=== PATIENT | male | born 1965 | race African-American/Black ===

== ENCOUNTER 2017-10-17 11:43 | Inpatient (IN) | payer OTHER ==
[2017-10-17 12:24] VITALS: BMI 24.9
--- NOTE | 2017-10-17 13:14 | HP ---
Admission ROS [facility] Chief Complaint: i need help to stop using cocaine Allergies/Adverse Reactions: Allergies Allergy/AdvReac Type Severity Reaction Status Date / Time No Known Allergies Allergy Verified 10/17/17 13:08 History of Present Illness: this 52 years old male with cocaine dependence,seeking rehab,last treatment [facility] admitted in [place] from 09/25/17 to 10/17/16 multiple medical problem,type 2 dm on insulin,neuropathy,hypercholesterolemia, gerd last treatment [facility] in 07/23 no significant period of sobriety Exam Limitations: No Limitations - Ebola screening Have you traveled outside of the country in the last 21 days: No Have you been sick,other than usual withdrawal symptoms: No - Review of Systems Constitutional: No Symptoms Reported EENT: reports: No Symptoms Reported Respiratory: reports: No Symptoms reported Cardiac: reports: No Symptoms Reported GI: reports: No Symptoms Reported : reports: No Symptoms Reported Musculoskeletal: reports: No Symptoms Reported Integumentary: reports: No Symptoms Reported Neuro: reports: No Symptoms reported Endocrine: reports: No Symptoms Reported Hematology: reports: No Symptoms Reported Psychiatric: reports: Depressed (mood disorder) Patient History - Patient Medical History Hx Anemia: No Hx Asthma: No Hx Chronic Obstructive Pulmonary Disease (COPD): No Hx Cancer: No Hx Cardiac Disorders: No Hx Congestive Heart Failure: No Hx Hypertension: No Hx Hypercholesterolemia: No Hx Pacemaker: No HX Cerebrovascular Accident: No Hx Seizures: No Hx Dementia: No Hx Diabetes: Yes (iddm) Hx Gastrointestinal Disorders: Yes (on prilosec) Hx Liver Disease: No Hx Genitourinary Disorders: No Hx Sexually Transmitted Disorders: Yes (gonorrhea at age 23) Hx Renal Disease (ESRD): No Hx Thyroid Disease: No Hx Human Immunodeficiency Virus (HIV): No (2012 last tested negative) Hx Hepatitis C: No Hx Depression: Yes (on med) Hx Suicide Attempt: Yes (overdose 04/18) Hx Bipolar Disorder: No Hx Schizophrenia: No Other Medical History: no suicidal,no homicidal - Patient Surgical History Past Surgical History: No Hx Neurologic Surgery: No Hx Cataract Extraction: No Hx Cardiac Surgery: No Hx Lung Surgery: No Hx Breast Surgery: No Hx Breast Biopsy: No Hx Abdominal Surgery: No Hx Appendectomy: No Hx Cholecystectomy: No Hx Genitourinary Surgery: No Hx Section: No Hx Orthopedic Surgery: No Anesthesia Reaction: No - PPD History Date: 05/22/14 - Smoking Cessation Smoking history: Current every day smoker Have you smoked in the past 12 months: Yes Aproximately how many cigarettes per day: 20 Cigars Per Day: 0 Hx Chewing Tobacco Use: No Initiated information on smoking cessation: Yes 'Breaking Loose' booklet given: 10/17/17 - Substance & Tx. History Hx Alcohol Use: No Hx Substance Use: Yes Substance Use Type: Cocaine Hx Substance Use Treatment: Yes ([facility] in 07/23) Family Disease History - Family Disease History Family Disease History: Diabetes: Father, Heart Disease: Mother (htn) Admission Physical Exam [facility] - Vital Signs Vital Signs: Vital Signs - 24 hr 10/17/17 12:12 Temperature 98.9 F Pulse Rate 100 H Respiratory 18 Rate Blood Pressure 120/70 - Physical General Appearance: Yes: Within Normal Limits HEENTM: Yes: Hearing grossly Normal, Normal ENT Inspection, Pharynx Normal Respiratory: Yes: Lungs Clear, Normal Breath Sounds, No Respiratory Distress Neck: Yes: Within Normal Limits, Supple, Trachea in good position Breast: Yes: Within Normal Limits Cardiology: Yes: Within Normal Limits, Regular Rhythm, Regular Rate, S1, S2 Abdominal: Yes: Within Normal Limits, Normal Bowel Sounds, Non Tender, Flat, Soft Genitourinary: Yes: Within Normal Limits Back: Yes: Within Normal Limits Musculoskeletal: Yes: Within Normal Limits Extremities: Yes: Within Normal Limits Neurological: Yes: manager process excellence II-XII NML intact, Fully Oriented, Alert, Motor Strength 5/5 Integumentary: Yes: Within Normal Limits Lymphatic: Yes: Within Normal Limits - Diagnostic (1) Cocaine dependence Current Visit: No Status: Acute (2) Depression Current Visit: No Status: Acute (3) Gastroesophageal reflux disease Current Visit: No Status: Acute (4) Nicotine dependence Current Visit: No Status: Acute (5) Weight decreased Current Visit: No Status: Acute (6) IDDM (insulin dependent diabetes mellitus) Current Visit: Yes Status: Acute Cleared for Admission [facility] - Detox or Rehab Claeared for Rehab Admission: Yes [facility] Breath Alcohol Content Breath Alcohol Content: 0 Urine Drug Screen - Results Drug Screen Negative: Yes Inpatient Rehab Admission - Initial Determination Are CD services needed?: Yes Free of communicable disease: Yes Not in need of hospitalization: Yes - Rehab Admission Criteria Previous failed treatment: Yes Poor recovery environment: Yes Comorbidities: Yes Patient is meeting Inpatient Rehab admission criteria:: Yes
[2017-10-17] MEDS ORDERED: MAGNESIUM HYDROX 2400MG/30ML ORAL SUSPENSION 30 ML CUP PO PRN (13:24)
[2017-10-17] MEDS ORDERED: hydrOXYzine PAMOATE 50 MG CAPSULE (FP) PO PRN (13:24)
[2017-10-17] MEDS ORDERED: LOPERAMIDE HCL 2 MG CAPSULE PO PRN (13:24)
[2017-10-17] MEDS ORDERED: P-EPHED 60MG/TRIPROLIDI 2.5MG TABLET PO PRN (13:24)
[2017-10-17] MEDS ORDERED: MAGNESIUM CITRATE 300 ML BOTTLE PO PRN (13:24)
[2017-10-17] MEDS ORDERED: ACETAMINOPHEN 325 MG TABLET (FP) PO PRN (13:24)
[2017-10-17] MEDS ORDERED: MAG HYDROX/AL HYDROX/SIMETH 30 ML UNIT-DOSE CUP PO PRN (13:24)
[2017-10-17] MEDS ORDERED: IBUPROFEN 400 MG TABLET (FP) PO PRN (13:24)
[2017-10-17] MEDS ORDERED: guaiFENesin/D-METHORPHAN HB 10 ML UNIT-DOSE CUPS PO PRN (13:24)
[2017-10-17] MEDS ORDERED: MENTHOL/PHENOL 1 EACH UD MM PRN (13:24)
[2017-10-17] MEDS ORDERED: TUBERCULIN PPD 5 TU/0.1ML VIAL ID ONE (15:15)
[2017-10-17] MEDS: INSULIN (NOVOLOG) ASPART 100 UNITS/ML 10ML VIAL SQ SCH ×2 (16:43→21:10)
[2017-10-17] MEDS: metFORMIN HCL 500 MG TABLET (FP) PO SCH (16:43)
[2017-10-17] MEDS ORDERED: INSULIN (NOVOLOG) ASPART 100 UNITS/ML 10ML VIAL ONE ×2 (17:08→20:58)
[2017-10-17 17:23] LABS: ALBUMIN 3.3 g/dl (3.4-5.0); ANION GAP 6 (8-16); BILIRUBIN,TOTAL 0.3 mg/dL (0.2-1.0); BLOOD UREA NITROGEN 14 mg/dL (7-18); CALCIUM 8.9 mg/dL (8.5-10.1); CHLORIDE 99 mmol/L (98-107); CO2 30 mmol/L (21-32); CREATININE 0.8 mg/dL (0.7-1.3); GLUCOSE,RANDOM 283 mg/dL (74-106); POTASSIUM 4.8 mmol/L (3.5-5.1); SGOT/AST 13 U/L (15-37); SGPT/ALT 26 U/L (12-78); SODIUM 135 mmol/L (136-145)
[2017-10-17 17:24] LABS: ALK PHOS 137 U/L (45-117)
[2017-10-17 17:28] LABS: HEMATOCRIT 39.2 % (35.4-49); HEMOGLOBIN 12.9 GM/dL (11.7-16.9); MCH 31.5 pg (25.7-33.7); MEAN CELL VOLUME 95.2 fl (80-96); MEAN PLT VOLUME 8.6 fl (7.5-11.1); PLATELET COUNT 373 K/MM3 (134-434); RBC 4.11 M/mm3 (4.00-5.60); RDW 13.9 % (11.9-15.9); WHITE BLOOD COUNT 4.6 K/mm3 (4.0-10.0)
[2017-10-17] MEDS: VITAMINS A AND D TOPICAL OINTMENT 60 GM TUBE TP SCH ×2 (17:45→23:06)
[2017-10-17] MEDS: ATORVASTATIN CA 10 MG TABLET (FP) PO SCH (21:09)
[2017-10-17] MEDS: GABAPENTIN 300 MG CAPSULE (FP) PO SCH (21:10)
[2017-10-17] MEDS: THIAMINE HCL 100 MG TABLET (FP) PO SCH (21:10)
--- NOTE | 2017-10-17 21:21 | PN ---
[facility] Progress Note Note: Psychiatry Attending's on-call note : Informed of patient's arrival to unit. Called for medications orders. Mr Arteaga is admitted from [facility]. Discharged today from [facility] (self-report). Spoke to patient via telephone.Jaya historian. Claims : seroquel 200 mg/hs remeron 30 mg/hs trazodone 250 mg/hs Patient declines to continue remeron. Will resume : seroquel 200 mg po hs trazodone 150 mg po hs Side effects/benefits of both drugs discussed. Patient made aware of risk of priapism.Normal vitals on admission. Potential for oversedation,falls,abnormal involuntary movements metabolic syndrome,orthostasis,cardiovascular adverse events. Consent (verbal) given.
[2017-10-17] MEDS: QUEtiapine FUMARATE 200 MG TABLET PO SCH (21:47)
[2017-10-17] MEDS ORDERED: traZODone HCL 50 MG TABLET (FP) PO SCH (22:00)
[2017-10-17 23:15] LABS: URINE APPEARANCE CLEAR; URINE BILIRUBIN NEGATIVE (NEGATIVE); URINE BLOOD NEGATIVE (NEGATIVE); URINE COLOR LTYELLOW; URINE GLUCOSE (UA) 3+ (NEGATIVE); URINE KETONE NEGATIVE (NEGATIVE); URINE LEUK ESTERASE NEGATIVE (NEGATIVE); URINE NITRITE NEGATIVE (NEGATIVE); URINE PROTEIN NEGATIVE (NEGATIVE); URINE UROBILINOGEN NEGATIVE mg/dL (0.2-1.0)
[2017-10-18] MEDS: metFORMIN HCL 500 MG TABLET (FP) PO SCH ×2 (06:25→16:59)
[2017-10-18] MEDS ORDERED: INSULIN (NOVOLOG) ASPART 100 UNITS/ML 10ML VIAL ONE ×3 (07:20→16:59)
[2017-10-18] MEDS: INSULIN (NOVOLOG) ASPART 100 UNITS/ML 10ML VIAL SQ SCH ×4 (07:27→21:32)
[2017-10-18] MEDS: VITAMINS A AND D TOPICAL OINTMENT 60 GM TUBE TP SCH ×3 (07:38→21:34)
[2017-10-18] MEDS: ASPIRIN 81 MG CHEWABLE TABLETS PO SCH (09:53)
[2017-10-18] MEDS: PRENATAL VITAMINS W/ FOLIC ACID TABLET (FP) PO SCH (09:53)
[2017-10-18] MEDS: GABAPENTIN 300 MG CAPSULE (FP) PO SCH ×2 (09:53→21:29)
[2017-10-18] MEDS: PANTOPRAZOLE 40 MG TABLET (FP) PO SCH (09:53)
--- NOTE | 2017-10-18 11:39 | HP ---
Psychiatrist Admission - Data Date of interview: 10/18/17 Admission source: [facility] Identifying data: This is the first 5N inpatient rehabilitation admission for this 52 year old single AA male father of 2, unemployed and supported on food stamps, domiciled. Medical History: NIDDM. Smokes cigarettes 1PPD. Psychiatric History: Patient reports was diagnosed with "depression and mood disorder", reports several psychiatric hospitalizations, with most recent last month, was admitted due to depressed mood and suicidal thoughts to [facility]. Reports first suicidal attempt when was 21 years old, following the of his twin brother, he took whole bottle of inderal. As per medical record from [facility] is currelntly on Seroquel 200 mg po hs, Remeron 30 mg po hs and Trazodone 250 mg po hs. Physical/Sexual Abuse/Trauma History: Patient denies history of sexual, physical and verbal abuse. Additional Comment: Mandy has two daughters age od 34 and 32, lives in [facility] with his friend. Vital Signs: Vital Signs - 24 hr 10/17/17 10/17/17 10/18/17 12:12 16:15 00:37 Temperature 98.9 F 98.4 F Pulse Rate 100 H 98 H Respiratory 18 16 18 Rate Blood Pressure 120/70 130/77 10/18/17 10/18/17 03:31 06:47 Temperature 98.3 F Pulse Rate 103 H Respiratory 18 18 Rate Blood Pressure 116/73 Allergies/Adverse Reactions: Allergies Allergy/AdvReac Type Severity Reaction Status Date / Time No Known Allergies Allergy Verified 10/17/17 13:08 Concur with the findings of this exam: No - Substance Abuse/Tx History Hx Alcohol Use: No Hx Substance Use: Yes ($50 daily use) Substance Use Type: Cocaine Hx Substance Use Treatment: Yes ([facility]) Mental Status Exam - Mental Status Exam Alert and Oriented to: Time, Place, Person Cognitive Function: Good Patient Appearance: Well Groomed Mood: Sad Affect: Appropriate, Mood Congruent Patient Behavior: Appropriate, Cooperative Speech Pattern: Appropriate Voice Loudness: Normal Thought Process: Intact, Goal Oriented Thought Disorder: Not Present Hallucinations: Denies Suicidal Ideation: Denies Homicidal Ideation: Denies Insight/Judgement: Fair Sleep: Difficulty falling asleep Appetite: Fair Muscle strength/Tone: Normal Gait/Station: Normal Psychiatric Findings - Problem List ([place] 1, 2,3) (1) MDD (major depressive disorder), recurrent severe, without psychosis Current Visit: Yes Status: Acute (2) Cocaine dependence Current Visit: No Status: Acute (3) DM (diabetes mellitus), type 1 Current Visit: No Status: Acute (4) Nicotine dependence Current Visit: No Status: Acute - Initial Treatment Plan Initial Treatment Plan: Will continue current medications, monitor progress as needed.
--- NOTE | 2017-10-18 11:49 | PN ---
S Progress Note (SOAP) Subjective: elevated glucose, not ordered insulain properly on admission Objective: 10/18/17 11:48 Vital Signs - 24 hr 10/17/17 10/17/17 10/18/17 12:12 16:15 00:37 Temperature 98.9 F 98.4 F Pulse Rate 100 H 98 H Respiratory 18 16 18 Rate Blood Pressure 120/70 130/77 10/18/17 10/18/17 03:31 06:47 Temperature 98.3 F Pulse Rate 103 H Respiratory 18 18 Rate Blood Pressure 116/73 Laboratory Tests 10/17/17 10/17/17 10/17/17 12:00 12:00 13:20 WBC 4.6 RBC 4.11 Hgb 12.9 Hct 39.2 MCV 95.2 MCH 31.5 MCHC 33.0 RDW 13.9 Plt Count 373 MPV 8.6 Sodium 135 L Potassium 4.8 Chloride 99 Carbon Dioxide 30 Anion Gap 6 L BUN 14 Creatinine 0.8 Creat Clearance w eGFR > 60 POC Glucometer 276 Random Glucose 283 H D Calcium 8.9 Total Bilirubin 0.3 D AST 13 L D ALT 26 Alkaline Phosphatase 137 H Total Protein 7.0 Albumin 3.3 L Urine Color Urine Appearance Urine pH Ur Specific [place] Urine Protein Urine Glucose (UA) Urine Ketones Urine Blood Urine Nitrite Urine Bilirubin Urine Urobilinogen Ur Leukocyte Esterase HIV 1&2 Antibody Screen HIV P24 Antigen 10/17/17 10/17/17 10/17/17 16:42 20:45 21:00 WBC RBC Hgb Hct MCV MCH MCHC RDW Plt Count MPV Sodium Potassium Chloride Carbon Dioxide Anion Gap BUN Creatinine Creat Clearance w eGFR POC Glucometer 277 212 Random Glucose Calcium Total Bilirubin AST ALT Alkaline Phosphatase Total Protein Albumin Urine Color Ltyellow Urine Appearance Clear Urine pH 7.0 Ur Specific [place] 1.017 Urine Protein Negative Urine Glucose (UA) 3+ H Urine Ketones Negative Urine Blood Negative Urine Nitrite Negative Urine Bilirubin Negative Urine Urobilinogen Negative Ur Leukocyte Esterase Negative HIV 1&2 Antibody Screen HIV P24 Antigen 10/18/17 10/18/17 05:45 06:24 WBC RBC Hgb Hct MCV MCH MCHC RDW Plt Count MPV Sodium Potassium Chloride Carbon Dioxide Anion Gap BUN Creatinine Creat Clearance w eGFR POC Glucometer 287 Random Glucose Calcium Total Bilirubin AST ALT Alkaline Phosphatase Total Protein Albumin Urine Color Urine Appearance Urine pH Ur Specific [place] Urine Protein Urine Glucose (UA) Urine Ketones Urine Blood Urine Nitrite Urine Bilirubin Urine Urobilinogen Ur Leukocyte Esterase HIV 1&2 Antibody Screen Negative HIV P24 Antigen Negative elevated glucose, dehydaration Assessment: 10/18/17 11:48 restart home medication for iddmm, reveiwed labs with patient, fluids
[2017-10-18] MEDS: THIAMINE HCL 100 MG TABLET (FP) PO SCH (21:28)
[2017-10-18] MEDS: MIRTAZAPINE 30 MG TABLET (FP) PO SCH (21:28)
[2017-10-18] MEDS: ATORVASTATIN CA 10 MG TABLET (FP) PO SCH (21:28)
[2017-10-18] MEDS: traZODone HCL 50 MG TABLET (FP) PO SCH (21:29)
[2017-10-18] MEDS: QUEtiapine FUMARATE 200 MG TABLET PO SCH (21:29)
[2017-10-18] MEDS: INSULIN DETEMIR 100 UNITS/ML MDV SQ SCH (21:29)
[2017-10-19] MEDS: metFORMIN HCL 500 MG TABLET (FP) PO SCH ×2 (06:13→16:36)
[2017-10-19] MEDS: INSULIN (NOVOLOG) ASPART 100 UNITS/ML 10ML VIAL SQ SCH ×4 (06:14→21:13)
[2017-10-19] MEDS: GABAPENTIN 300 MG CAPSULE (FP) PO SCH ×2 (09:43→21:10)
[2017-10-19] MEDS: ASPIRIN 81 MG CHEWABLE TABLETS PO SCH (09:43)
[2017-10-19] MEDS: PRENATAL VITAMINS W/ FOLIC ACID TABLET (FP) PO SCH (09:43)
[2017-10-19] MEDS: PANTOPRAZOLE 40 MG TABLET (FP) PO SCH (09:44)
[2017-10-19] MEDS: VITAMINS A AND D TOPICAL OINTMENT 60 GM TUBE TP SCH ×2 (09:44→21:14)
[2017-10-19] MEDS ORDERED: INSULIN (NOVOLOG) ASPART 100 UNITS/ML 10ML VIAL ONE ×2 (11:54→16:38)
--- NOTE | 2017-10-19 17:11 | EKG ---
Test Reason : Blood Pressure : / mmHG Vent. Rate : 101 BPM Atrial Rate : 101 BPM P-R Int : 160 ms QRS Dur : 070 ms QT Int : 322 ms P-R-T Axes : 059 066 046 degrees QTc Int : 417 ms SINUS TACHYCARDIA OTHERWISE NORMAL ECG NO PREVIOUS ECGS AVAILABLE Confirmed by PAWAN VILLALBA MD ([id number]) on 10/19/2017 5:10:47 PM Referred By: Confirmed By:PAWAN VILLALBA MD
[2017-10-19] MEDS: THIAMINE HCL 100 MG TABLET (FP) PO SCH (21:09)
[2017-10-19] MEDS: traZODone HCL 50 MG TABLET (FP) PO SCH (21:09)
[2017-10-19] MEDS: MIRTAZAPINE 30 MG TABLET (FP) PO SCH (21:10)
[2017-10-19] MEDS: ATORVASTATIN CA 10 MG TABLET (FP) PO SCH (21:10)
[2017-10-19] MEDS: QUEtiapine FUMARATE 200 MG TABLET PO SCH (21:10)
[2017-10-19] MEDS: INSULIN DETEMIR 100 UNITS/ML MDV SQ SCH (21:12)
[2017-10-20] MEDS: metFORMIN HCL 500 MG TABLET (FP) PO SCH ×2 (06:10→16:35)
[2017-10-20 06:33] VITALS: BP 128/83; PULSE 103; TEMP 98.3
[2017-10-20] MEDS ORDERED: INSULIN (NOVOLOG) ASPART 100 UNITS/ML 10ML VIAL ONE ×2 (06:58→16:37)
[2017-10-20] MEDS: INSULIN (NOVOLOG) ASPART 100 UNITS/ML 10ML VIAL SQ SCH ×3 (07:46→16:38)
[2017-10-20] MEDS: PRENATAL VITAMINS W/ FOLIC ACID TABLET (FP) PO SCH (09:26)
[2017-10-20] MEDS: PANTOPRAZOLE 40 MG TABLET (FP) PO SCH (09:26)
[2017-10-20] MEDS: ASPIRIN 81 MG CHEWABLE TABLETS PO SCH (09:26)
[2017-10-20] MEDS: VITAMINS A AND D TOPICAL OINTMENT 60 GM TUBE TP SCH (09:26)
[2017-10-20] MEDS: GABAPENTIN 300 MG CAPSULE (FP) PO SCH (09:26)
--- NOTE | 2017-10-20 19:59 | PN ---
[facility] Progress Note Note: patient did not want to complete treatment,signed release ama,psychiatrist instruction librarian notified by nurse,did not want to wait, stated has all medications at home ,
== END 2017-10-20 20:40 | disposition left against medical advice (07) | DRG 770 ==
LOC: YASAS 11:43 → Y5N 13:46
PROVIDERS: ADMIT Psychiatry & Neurology Psychiatry; ATTEND Psychiatry & Neurology Psychiatry
PROC: HZ2ZZZZ Detoxification Services for Substance Abuse Treatment (ICD-10-PCS; principal; 2017-10-17)
DX: F10.20 Alcohol dependence, uncomplicated (principal); F14.20 Cocaine dependence, uncomplicated; F12.10 Cannabis abuse, uncomplicated; F33.2 Major depressive disorder, recurrent severe without psychotic features; F32.9 Major depressive disorder, single episode, unspecified; E11.9 Type 2 diabetes mellitus without complications; Z79.4 Long term (current) use of insulin; R63.4 Abnormal weight loss; Z68.24 Body mass index [BMI] 24.0-24.9, adult; Z87.438 Personal history of other diseases of male genital organs; Z91.5 Personal history of self-harm
CPT/HCPCS: 36415; 80053; 81003; 82962; 85027; 86593; 87389; 93005; 93010